=== PATIENT | male | born 1960 | race African-American/Black ===

== ENCOUNTER 2018-01-20 12:12 | Outpatient (CLI) | payer MEDICARE, MEDICAID | END 2018-01-20 12:13 | disposition home or self-care (01) | LOC: ULT 12:12 | PROVIDERS: ATTEND Family Medicine | DX: R00.0 Tachycardia, unspecified (principal); I08.1 Rheumatic disorders of both mitral and tricuspid valves | CPT/HCPCS: 93306 ==

== ENCOUNTER 2019-11-08 19:48 | Observation (INO) | payer MEDICARE, MEDICAID ==
[2019-11-08 20:26] LABS: #Lymphocytes 0.5 thou/uL (1.20-3.40); #Monocytes 0.1 thou/uL (0.11-0.59); #Neutrophils 1.9 thou/uL (1.40-6.50); %Basophils 1.8 % (0.0-1.0); %Eosinophils 0.9 % (0.0-10.0); %Lymphocytes 20.6 % (21.0-51.0); %Monocytes 3.4 % (0.0-10.0); %Neutrophils 73.4 % (42.0-75.0); Hemoglobin 12.6 g/dL (14.0-18.0); Mean Corpuscular HGB CONC 32.2 g/dL (32.0-36.0); Mean Corpuscular Hemoglobin 28.3 pg (27.0-31.0); Mean Corpuscular Volume 87.9 fL (78.0-98.0); Mean Platelet Volume 9.9 fL (7.4-10.4); Platelet Count 128 thou/uL (130-400); RBC Distribution Width 13.2 % (11.5-14.5); Red Blood Cell (RBC) Count 4.46 mill/uL (4.70-6.10); White Blood Cell (WBC) Count 2.6 thou/uL (4.8-10.8)
--- NOTE | 2019-11-08 20:37 | CT ---
Exam: CT brain PROVIDED CLINICAL HISTORY: Syncope COMPARISON: 06/09/2019 FINDINGS: The ventricular system is normal in size and morphology. No evidence for intracranial hemorrhage or mass effect. The extracranial soft tissues and osseous structures demonstrate no evidence for an acute abnormality. IMPRESSION: No evidence for intracranial hemorrhage or mass effect.
[2019-11-08 20:39] LABS: ALT (SGPT) 16 U/L (8-55); AST (SGOT) 23 U/L (5-34); Albumin 3.7 g/dL (3.5-5.0); Alkaline Phosphatase 83 U/L (40-110); Anion Gap 12 mmol/L (10-20); BUN (Urea Nitrogen) 11 mg/dL (8.4-25.7); Bilirubin, Total 0.4 mg/dL (0.2-1.2); Calc. Creatinine Clearance 0 mL/min (70-130); Calcium 8.6 mg/dL (7.8-10.44); Carbon Dioxide 25 mmol/L (22-29); Chloride 108 mmol/L (98-107); Estimated GFR-MDRD Greater than 90; Globulin 2.9 g/dL (2.4-3.5); Glucose 93 mg/dL (70-105); Potassium 3.2 mmol/L (3.5-5.1); Protein, Total 6.6 g/dL (6.0-8.3); Sodium 142 mmol/L (136-145)
--- NOTE | 2019-11-08 20:40 | RAD ---
EXAM: Portable chest PROVIDED CLINICAL HISTORY: Syncope COMPARISON: 08/04/2017 FINDINGS: Cardiac and mediastinal silhouette is within normal limits. No focal consolidation, pleural fluid or pneumothorax evident. IMPRESSION: No evidence for an acute cardiopulmonary process.
[2019-11-08 20:46] LABS: Acetaminophen Less than 6.0 mcg/mL (10.0-30.0); Alcohol Less than 10 mg/dL (Less than 10); CK (CPK) 77 U/L (30-200); Salicylate Less than 8.0 mg/dL (15.0-30.0)
[2019-11-08] MEDS ORDERED: methylPREDNISolone Sod Succ/PF 125 MG/2 ML VIAL ONE (20:52)
[2019-11-08 21:09] LABS: CKMB 1.4 ng/mL (0-6.6)
[2019-11-08] MEDS ORDERED: Magnesium 2 GM/50 ML BAG (IN WATER) ONE (21:37)
--- NOTE | 2019-11-08 22:36 | PDOC.HHP ---
Hospitalist HPI - History of Present Illness Syncope, Chest pain, illicit drug usage History of Present Illness: 59/M with PMH illicit drug abuse, CAD, CVA w/ L-sided deficits, HIV, presents for evaluation of syncope and collapse. Patient reports going to smoke crack around 1800 this evening in [place], [place]". Reports getting crack from his friend Darrell, who is a drug dealer. Reports smoking some crack and becoming nauseated and then vomited. Darrell told him to go to [employer] to get an oatmeal cake to help his nausea. Reports going to [employer] then returning back to Darrell, where he smoked some more crack. Reports "I fell out", feeling nauseated and vomiting. Reports that Darrell called his sister and his sister called 911. He reports associated chest pain and dizziness, denies any SOB, fever, chills, diarrhea. Per EMS found the patient unresponsive at a "friends house". Patient reported chest pain after smoking crack that "smelled different and looked different". Currently, patient is somnolent, responsive to voice and able to answer questions appropriately. A&Ox2, able to recall information as stated above. States chest pain resolved, complaining of persistent nausea. ED Course: Patient somnolent, VSS Patient EKG was SR, HR 76 with frequent PVCs, Trop 0.031, patient given 1 L NS, Magnesium 2gm IVPB, solumedrol 125mg IVP, and Duoneb x 1. CT brain negative for acute intracranial process. CXR unremarkable. Serum DS unremarkable, Urine DS pending collection. Hospitalist ROS - Review of Systems Constitutional: reports: sweats, weakness. denies: fever, chills Eyes: reports: vision change. denies: pain, redness ENT: reports: nose pain. denies: ear pain, ear discharge, nose congestion, throat pain Respiratory: denies: cough, shortness of breath, hemoptysis, SOB with excertion , wheezing Cardiovascular: reports: chest pain, palpitations, light headedness. denies: edema Gastrointestinal: reports: nausea, vomiting. denies: abdominal pain, diarrhea Genitourinary: denies: dysuria, frequency, hematuria Musculoskeletal: reports: back pain (chronic). denies: neck pain Skin: denies: rash, lesions Neurological: reports: weakness (chronic left sided weakness) Hospitalist History - Past Medical History Source: patient Cardiac: reports: CAD (x 1 stent), NC, Syncope, Hyperlipidemia Pulmonary: reports: CVA/TIA/stroke (Left sided residual weakness), heart attack , HIV/AIDS BEHAVIOR SUPPORT SPECIALIST: reports: CVA. denies: Migraine, Seizure Gastrointestinal: denies: GERD, Inflam bowel disease Psych: reports: Anxiety, Addictions (Crack cocaine), Bipolar, Depression Musculoskeletal: reports: no pertinent history Rheumatologic: reports: no pertinent history Infectious Disease: reports: HIV Endocrine: denies: Diabetes, Hypothyroidism - Past Surgical History Past Surgical History: reports: Other Other Surgical History: Right wrist, back, cardiac stent x 1. - Family History Family History: reports: hypertension, Other (CAD) - Social History Smoking Status: Current every day smoker Tobacco Type: cigarettes Alcohol: reports: Occassional, Heavy (Less than 5 per day) Drugs: reports: cocaine Living Situation: Alone Activity level: independent ambulation - Exam General Appearance: NAD General - other findings: somnolent, GCS 13-E3,V4,M6 Eye: negative: PERRL Eye - other findings: pin point pupils, equal bilaterally ENT: normocephalic atraumatic, dry oral mucosa Neck: no JVD, no thyromegaly, no lymphadenopathy, JVD. negative: supple Heart: RRR, no murmur, no gallops, no rubs, normal peripheral pulses Respiratory: no rales, no ronchi, normal chest expansion, no tachypnea, wheezes Respiratory - other findings: expiratory wheezes Gastrointestinal: soft, non-tender, normal bowel sounds, no guarding, no rigidity, distended. negative: no splenomegaly Extremities: negative: no cyanosis, no edema Skin: no lesions, no rashes Neurological: facial droop (left) Neurological - other findings: left sided weakness from previous CVA Psychiatric: oriented to person, oriented to place, somnolent. negative: oriented to time Psychiatric - other findings: answers to voice GCS 13-E3,V4,M6 Hospitalist Results - Labs Result Diagrams: 11/08/19 20:16 11/08/19 20:16 Lab results: WBC 2.6 thou/uL (4.8-10.8) L 11/08/19 20:16 Hgb 12.6 g/dL (14.0-18.0) L 11/08/19 20:16 Hct 39.3 % (42.0-52.0) L 11/08/19 20:16 MCV 87.9 fL (78.0-98.0) 11/08/19 20:16 Plt Count 128 thou/uL (130-400) L 11/08/19 20:16 Neutrophils % 73.4 % (42.0-75.0) 11/08/19 20:16 Sodium 142 mmol/L (136-145) 11/08/19 20:16 Potassium 3.2 mmol/L (3.5-5.1) L 11/08/19 20:16 Chloride 108 mmol/L (98-107) H 11/08/19 20:16 Carbon Dioxide 25 mmol/L (22-29) 11/08/19 20:16 BUN 11 mg/dL (8.4-25.7) 11/08/19 20:16 Creatinine 0.88 mg/dL (0.7-1.3) 11/08/19 20:16 Glucose 93 mg/dL (70-105) 11/08/19 20:16 Calcium 8.6 mg/dL (7.8-10.44) 11/08/19 20:16 Total Bilirubin 0.4 mg/dL (0.2-1.2) 11/08/19 20:16 AST 23 U/L (5-34) 11/08/19 20:16 ALT 16 U/L (8-55) 11/08/19 20:16 Alkaline Phosphatase 83 U/L (40-110) 11/08/19 20:16 Creatine Kinase 77 U/L (30-200) 11/08/19 20:16 CK-MB (CK-2) 1.4 ng/mL (0-6.6) 11/08/19 20:16 Troponin I 0.031 ng/mL (< 0.028) H 11/08/19 20:16 Serum Total Protein 6.6 g/dL (6.0-8.3) 11/08/19 20:16 Albumin 3.7 g/dL (3.5-5.0) 11/08/19 20:16 - EKG Interpretation EKG: SR with PVCs. - Radiology Interpretation Chest x-ray Status: report reviewed by me CT scan - head Status: report reviewed by me Hospitalist H&P A/P - Problem (1) Syncope and collapse Code(s): R55 - SYNCOPE AND COLLAPSE Status: Acute (2) Chest pain Code(s): R07.9 - CHEST PAIN, UNSPECIFIED Status: Acute (3) Polysubstance (excluding opioids) dependence Code(s): F19.20 - OTHER PSYCHOACTIVE SUBSTANCE DEPENDENCE, UNCOMPLICATED Status: Chronic (4) Hypokalemia Code(s): E87.6 - HYPOKALEMIA Status: Acute (5) HTN (hypertension) Code(s): I10 - ESSENTIAL (PRIMARY) HYPERTENSION Status: Chronic Qualifiers: Hypertension type: essential hypertension Qualified Code(s): I10 - Essential (primary) hypertension (6) CAD (coronary artery disease) Code(s): I25.10 - ATHSCL HEART DISEASE OF [place] CORONARY ARTERY W/O ANG PCTRS Status: Chronic Qualifiers: Coronary Disease-Associated Artery/Lesion type: [place] artery (7) History of NC (myocardial infarction) Code(s): I25.2 - OLD MYOCARDIAL INFARCTION Status: Chronic (8) Depression Code(s): F32.9 - MAJOR DEPRESSIVE DISORDER, SINGLE EPISODE, UNSPECIFIED Status : Chronic (9) Anxiety Code(s): F41.9 - ANXIETY DISORDER, UNSPECIFIED Status: Chronic (10) HIV (human immunodeficiency virus infection) Status: Chronic (11) Pancytopenia Code(s): D61.818 - OTHER PANCYTOPENIA Status: Chronic (12) Hepatitis C Code(s): B19.20 - UNSPECIFIED VIRAL HEPATITIS C WITHOUT HEPATIC COMA Status: Chronic - Plan Plan: Urine DS pending. EKG NSR with PVCs, no acute. Replace potassium. Continue to monitor electrolytes. Continuous cardiac monitoring. Continue to trend troponins. Will check orthostatics and cortisol level. Monitor blood pressure. Continue DuoNebs prn Gentle IV hydration. ASE protocol. GI/DVT prophylaxis. BMP and CBC in AM. Full code.
[2019-11-08 23:36] LABS: Troponin I Less than 0.010 ng/mL (< 0.028)
[2019-11-09] MEDS ORDERED: Ondansetron PF 4 MG/2 ML Vial IVP PRN (00:37)
[2019-11-09] MEDS ORDERED: Acetaminophen 650 MG Suppository PR PRN (00:37)
[2019-11-09] MEDS ORDERED: Ondansetron ODT 4 MG TAB PO PRN (00:37)
[2019-11-09] MEDS ORDERED: Acetaminophen 325 MG TAB PO PRN (00:37)
[2019-11-09] MEDS ORDERED: Potassium Chloride 40 MEQ in Sodium Chloride 0.9% 500 ML IVPB SCH (01:15)
[2019-11-09 02:17] VITALS: BMI 30.6
[2019-11-09 02:25] LABS: #Lymphocytes 0.5 thou/uL (1.20-3.40); #Neutrophils 1.6 thou/uL (1.40-6.50); %Basophils 1.5 % (0.0-1.0); %Eosinophils 0.2 % (0.0-10.0); %Monocytes 1.7 % (0.0-10.0); %Neutrophils 75.6 % (42.0-75.0); Mean Corpuscular Hemoglobin 29.8 pg (27.0-31.0); Mean Corpuscular Volume 87.8 fL (78.0-98.0); Mean Platelet Volume 9.6 fL (7.4-10.4); Platelet Count 117 thou/uL (130-400); RBC Distribution Width 13.1 % (11.5-14.5); Red Blood Cell (RBC) Count 4.35 mill/uL (4.70-6.10); White Blood Cell (WBC) Count 2.2 thou/uL (4.8-10.8)
[2019-11-09 02:48] LABS: Troponin I Less than 0.010 ng/mL (< 0.028)
[2019-11-09 02:51] LABS: Anion Gap 14 mmol/L (10-20); BUN (Urea Nitrogen) 10 mg/dL (8.4-25.7); Calc. Creatinine Clearance 123 mL/min (70-130); Calcium 8.5 mg/dL (7.8-10.44); Carbon Dioxide 23 mmol/L (22-29); Chloride 109 mmol/L (98-107); Estimated GFR-MDRD Greater than 90; Glucose 184 mg/dL (70-105); Magnesium 2.2 mg/dL (1.6-2.6); Potassium 3.3 mmol/L (3.5-5.1); Sodium 143 mmol/L (136-145)
[2019-11-09] MEDS ORDERED: Aspirin 325 MG TAB PO SCH (08:00)
--- NOTE | 2019-11-09 08:18 | ULT ---
US Carotid Doppler STANDARD History: Syncope Comparison: None. Findings: Real-time grayscale and color evaluation of the extracranial carotid and vertebral arteries was performed. Antegrade flow both vertebral arteries. The technologist was unable to obtain flow the distal right i nternal carotid artery. Remainder of the imaged internal carotid arteries have no elevated peak systolic velocities. No reversal flow within the mid right internal carotid artery. Mild atherosclerotic plaque of both carotid bulbs. No elevated peak some velocity within the left int ernal carotid artery. Impression: Inability to obtain flow distal right internal carotid artery. CT angiogram recommended.
[2019-11-09] MEDS: Famotidine/PF 20 mg/2ml Vial SLOW IVP SCH ×2 (09:39→21:36)
--- NOTE | 2019-11-09 16:55 | PDOC.HOSPP ---
- Subjective Encounter Date: 11/09/19 Encounter Time: 10:45 Subjective: no chest pain or sob is not suicidal or homicidal, has no plans for commiting suicide either says he is depressed overall but no suicidal ideation due to circumstances he is in being homeless and needing help with meds for all his medical issues he is currently living in a old unused portion of [facility] building with no electricity or heating has no resources in the family to help him patient is on disability benefits, does not have to pay for his meds either per CM - Objective Vital Signs & Weight: Vital Signs (12 hours) Temp Pulse Pulse Pulse Resp BP BP 11/09/19 15:16 98.6 F 88 18 11/09/19 12:05 82 150/85 H 11/09/19 11:37 98.8 F 75 15 11/09/19 09:55 77 74 144/84 H 11/09/19 09:30 98.6 F 70 18 127/66 BP BP Pulse Ox Pulse Ox 11/09/19 15:16 127/71 98 11/09/19 12:05 11/09/19 11:37 160/86 H 99 11/09/19 09:55 159/86 H 99 11/09/19 09:30 127/66 95 Weight Admit Weight 189 lb 12.8 oz Weight 189 lb 12.8 oz I&O: 11/08/19 11/09/19 11/10/19 06:59 06:59 06:59 Intake Total 980 Output Total 550 Balance 430 Result Diagrams: 11/09/19 02:17 11/09/19 02:17 Hospitalist ROS - Medication Medications: Active Medications Generic Name Dose Route Start Last Admin Trade Name Dwainq PRN Reason Stop Dose Admin Famotidine 20 mg 11/09/19 09:00 11/09/19 09:39 Pepcid SLOW IVP 20 mg Q12HR LIA Administration - Exam General Appearance: NAD, awake alert Eye: PERRL, anicteric sclera ENT: no oropharyngeal lesions, moist mucosa Neck: supple, no JVD Heart: RRR, no murmur Respiratory: no wheezes, no rales Gastrointestinal: soft, non-tender, non-distended, normal bowel sounds Extremities: no cyanosis, no edema Neurological: cranial nerve grossly intact, no focal deficits Psychiatric: normal affect, A&O x 3 Hosp A/P (1) Acute metabolic encephalopathy Code(s): G93.41 - METABOLIC ENCEPHALOPATHY Status: Resolved (2) Syncope and collapse Code(s): R55 - SYNCOPE AND COLLAPSE Status: Resolved (3) Depression Code(s): F32.9 - MAJOR DEPRESSIVE DISORDER, SINGLE EPISODE, UNSPECIFIED Status : Chronic Qualifiers: Depression Type: unspecified Qualified Code(s): F32.9 - Major depressive disorder, single episode, unspecified (4) CAD (coronary artery disease) Code(s): I25.10 - ATHSCL HEART DISEASE OF [place] CORONARY ARTERY W/O ANG PCTRS Status: Chronic Qualifiers: Coronary Disease-Associated Artery/Lesion type: [place] artery [place] vs. transplanted heart: [place] heart Associated angina: without angina Qualified Code(s): I25.10 - Atherosclerotic heart disease of [place] coronary artery without angina pectoris (5) HIV (human immunodeficiency virus infection) Status: Chronic (6) HTN (hypertension) Code(s): I10 - ESSENTIAL (PRIMARY) HYPERTENSION Status: Chronic Qualifiers: Hypertension type: essential hypertension Qualified Code(s): I10 - Essential (primary) hypertension (7) Hepatitis C Code(s): B19.20 - UNSPECIFIED VIRAL HEPATITIS C WITHOUT HEPATIC COMA Status: Chronic Qualifiers: Viral hepatitis chronicity: chronic Hepatic coma status: without hepatic coma Qualified Code(s): B18.2 - Chronic viral hepatitis C (8) History of NE (myocardial infarction) Code(s): I25.2 - OLD MYOCARDIAL INFARCTION Status: Chronic (9) Polysubstance (excluding opioids) dependence Code(s): F19.20 - OTHER PSYCHOACTIVE SUBSTANCE DEPENDENCE, UNCOMPLICATED Status: Chronic - Plan metabolic encephalopathy and syncope sec to substance use, resolved hemostable may dc if cleared by [facility] d/w for any help for his homeless situation, he wont qualify for shelters due to his substance use, he apparently gets SSI and has to find resources in the community to help find a home to rent or motel to stay. If he ends up staying tonight in hospital may tx to med floor He is generally depressed due to situation he is in, not suicidal or homicidal per my conversation with him this am.
[2019-11-10] MEDS: Gabapentin 300 MG CAP PO SCH ×2 (08:45→16:05)
[2019-11-10] MEDS: Famotidine/PF 20 mg/2ml Vial SLOW IVP SCH (08:45)
[2019-11-10] MEDS ORDERED: DARUNAVIR PO SCH (09:00)
[2019-11-10] MEDS ORDERED: Darunavir/Cobicistat [Prezcobix 800 Mg-150 Mg Tablet PO SCH (09:00)
[2019-11-10] MEDS ORDERED: Dolutegravir Sodium [Tivicay] 50 MG PO SCH (09:00)
[2019-11-10] MEDS ORDERED: Prevnar 13-Val Conj/PF 0.5 ML SYRINGE IM ONE (09:00)
[2019-11-10] MEDS ORDERED: COBICISTAT PO SCH (09:00)
[2019-11-10] MEDS ORDERED: Tamsulosin HCl 0.4 MG CAP PO SCH (09:00)
[2019-11-10] MEDS ORDERED: [UNRECOGNIZED DRUG - OTHER] PO SCH (09:00)
[2019-11-10] MEDS ORDERED: FLU VACC QS2019-20(6MOS UP)/PF 60 MCG/0.5 ML SYRINGE IM ONE (09:00)
[2019-11-10] MEDS ORDERED: Lisinopril 2.5 MG TAB PO SCH (09:00)
--- NOTE | 2019-11-10 12:00 | PDOC.HOSPP ---
- Subjective Encounter Date: 11/10/19 Encounter Time: 09:15 Subjective: is happy his daughter and sister came to visit him last night no complaints now - Objective Vital Signs & Weight: Vital Signs (12 hours) Temp Pulse Resp BP Pulse Ox 11/10/19 08:45 62 11/10/19 04:00 97.9 F 62 20 127/71 100 Weight Admit Weight 189 lb 12.8 oz Weight 192 lb 3.2 oz I&O: 11/09/19 11/10/19 11/11/19 06:59 06:59 06:59 Intake Total 980 1680 Output Total 550 1420 Balance 430 260 Result Diagrams: 11/09/19 02:17 11/09/19 02:17 Hospitalist ROS - Medication Medications: Active Medications Generic Name Dose Route Start Last Admin Trade Name Mayra PRN Reason Stop Dose Admin Famotidine 20 mg 11/09/19 09:00 11/10/19 08:45 Pepcid SLOW IVP Not Given Q12HR LIA Gabapentin 300 mg 11/10/19 09:00 11/10/19 08:45 Neurontin PO 300 mg TID LIA Administration Lisinopril 2.5 mg 11/10/19 09:00 11/10/19 08:45 Zestril PO 2.5 mg DAILY LIA Administration Tamsulosin HCl 0.4 mg 11/10/19 09:00 11/10/19 08:45 Flomax PO 0.4 mg DAILY LIA Administration - Exam General Appearance: awake alert Eye: PERRL, anicteric sclera ENT: no oropharyngeal lesions, moist mucosa Neck: supple, no JVD Heart: no murmur, no gallops Respiratory: no wheezes, no rales Gastrointestinal: soft, non-tender, non-distended, normal bowel sounds Extremities: no cyanosis, no edema Neurological: cranial nerve grossly intact, no focal deficits Psychiatric: A&O x 3 Hosp A/P (1) Acute metabolic encephalopathy Code(s): G93.41 - METABOLIC ENCEPHALOPATHY Status: Resolved (2) Syncope and collapse Code(s): R55 - SYNCOPE AND COLLAPSE Status: Resolved (3) Depression Code(s): F32.9 - MAJOR DEPRESSIVE DISORDER, SINGLE EPISODE, UNSPECIFIED Status : Chronic Qualifiers: Depression Type: unspecified Qualified Code(s): F32.9 - Major depressive disorder, single episode, unspecified (4) CAD (coronary artery disease) Code(s): I25.10 - ATHSCL HEART DISEASE OF [place] CORONARY ARTERY W/O ANG PCTRS Status: Chronic Qualifiers: Coronary Disease-Associated Artery/Lesion type: [place] artery [place] vs. transplanted heart: [place] heart Associated angina: without angina Qualified Code(s): I25.10 - Atherosclerotic heart disease of [place] coronary artery without angina pectoris (5) HIV (human immunodeficiency virus infection) Status: Chronic (6) HTN (hypertension) Code(s): I10 - ESSENTIAL (PRIMARY) HYPERTENSION Status: Chronic Qualifiers: Hypertension type: essential hypertension Qualified Code(s): I10 - Essential (primary) hypertension (7) Hepatitis C Code(s): B19.20 - UNSPECIFIED VIRAL HEPATITIS C WITHOUT HEPATIC COMA Status: Chronic Qualifiers: Viral hepatitis chronicity: chronic Hepatic coma status: without hepatic coma Qualified Code(s): B18.2 - Chronic viral hepatitis C (8) History of [place] (myocardial infarction) Code(s): I25.2 - OLD MYOCARDIAL INFARCTION Status: Chronic (9) Polysubstance (excluding opioids) dependence Code(s): F19.20 - OTHER PSYCHOACTIVE SUBSTANCE DEPENDENCE, UNCOMPLICATED Status: Chronic - Plan metabolic encephalopathy and syncope sec to substance use, resolved hemostable Per [facility] he needs placement to inpt psych unit due to suicidal ideation If he ends up staying tonight in hospital may tx to med floor may dc anytime if accepted
[2019-11-10 17:21] VITALS: BP 130/63; TEMP 98.7
[2019-11-10] MEDS ORDERED: Atorvastatin Calcium 20 MG TAB PO SCH (21:00)
--- NOTE | 2019-11-11 12:59 | DIS ---
DATE OF ADMISSION: 11/08/2019 DATE OF DISCHARGE: 11/10/2019 DISCHARGE DISPOSITION: [facility]. PRIMARY DISCHARGE DIAGNOSES: 1. Acute metabolic encephalopathy secondary to substance use, resolved. 2. Syncope secondary to substance use, resolved. 3. Depression with suicidal ideation. 4. Coronary artery disease. 5. Human immunodeficiency virus disease. 6. Hypertension. 7. Chronic hepatitis C. 8. History of coronary artery disease. PROCEDURES DONE DURING HOSPITALIZATION: CT brain done showed no acute intracranial hemorrhage or mass effect. Chest x-ray done showed no acute cardiopulmonary process. Echo with 2D Doppler showed EF of 55% to 60%. Carotid Doppler done showed no abnormality in the left internal carotid artery. Right internal carotid artery was not well visualized. H and H of 13 and 38, platelet count 117, MCV is 87, white count of 2.2. Discharge BUN and creatinine are 10 and 0.8. DISCHARGE PLAN: The patient is being discharged to [facility] for suicidal ideation. DISCHARGE MEDICATIONS: The patient to continue: 1. Prezcobix daily. 2. Tivicay daily. 3. Gabapentin 300 mg p.o. three times daily. 4. Lisinopril 2.5 mg p.o. daily. 5. Zocor 20 mg p.o. q.h.s. 6. Flomax 0.4 mg p.o. daily. 7. Ultram p.r.n. for pain. ALLERGIES: NO KNOWN DRUG ALLERGIES. BRIEF COURSE DURING HOSPITALIZATION: The patient initially got admitted on the 2nd after he apparently passed out after using crack cocaine. The patient was placed under observation on telemetry. Initially, the patient had acute metabolic encephalopathy and has had a CT brain done, which did not reveal any acute pathology. 24 hours into hospitalization, the patient was fully oriented. He apparently described that he is suicidal and was scared to go back to [place] as he was homeless and he owed money to people who would come after him. He would rather than go back. This was revealed by patient to staff. He was on one-to-one sitter. The patient has multiple medical issues and it is not clear if he is compliant with all his medical treatment. In view of this history with suicidal ideation, the patient had [facility] consultation. Per their recommendation , the patient is being discharged to [facility]. I have given complete updates to Dr. Ann, psychiatrist, who will be accepting the patient there. Please see a [id number] documentation for the day of discharge on [employer]. Job ID: [id number] [facility]
== END 2019-11-10 17:00 ==
LOC: ERS 19:48 → ERHOLD 21:38 → 2NO 11-09 00:27
PROVIDERS: ADMIT Internal Medicine; ATTEND Internal Medicine
DX: T40.5X1A Poisoning by cocaine, accidental (unintentional), initial encounter (principal); G92 Toxic encephalopathy; F19.20 Other psychoactive substance dependence, uncomplicated; R55 Syncope and collapse; R07.9 Chest pain, unspecified; I10 Essential (primary) hypertension; E78.5 Hyperlipidemia, unspecified; F17.210 Nicotine dependence, cigarettes, uncomplicated; F41.9 Anxiety disorder, unspecified; F31.9 Bipolar disorder, unspecified; I25.10 Atherosclerotic heart disease of native coronary artery without angina pectoris; D61.818 Other pancytopenia; R45.851 Suicidal ideations; Z21 Asymptomatic human immunodeficiency virus [HIV] infection status; Z79.899 Other long term (current) drug therapy; Z95.5 Presence of coronary angioplasty implant and graft
CPT/HCPCS: 70450; 71045; 80048; 80307; 82533; 82550; 82553; 83735 ×2; 84146; 84484 ×3; 85025; 90686; 93005; 93306; 93880; 96361; 96365; 96366; 96375 ×2; 97116; 97139 ×3; 99285; G0008; G0378 ×3; 36415; 80053; 84443; 90471; J2930; J3475; J3480; J7050; S0028